=== PATIENT | male | born 1970 | race Hispanic/Latino ===

== ENCOUNTER 2021-01-21 09:43 | Inpatient (IN) | payer SELFPAY ==
[~2021-01-21] VITALS: Ht 175.3 cm; Wt 77.1 kg
[2021-01-21] MEDS ORDERED: SODIUM CHLORIDE 0.9% 1000ML 1,000 ML IV STA (10:11)
[2021-01-21] MEDS ORDERED: DEXAMETHASONE SOD PHOS 10 MG/1 ML VIAL IV ONE (10:15)
[2021-01-21 10:40] LABS: BASOPHILS % 0.2 % (0.0-1.0); EOSINOPHILS % 0.2 % (0.0-6.0); HEMATOCRIT 44.6 % (38.2-49.6); HEMOGLOBIN 14.4 g/dL (14.0-18.0); LYMPHOCYTES # (AUTO) 0.6 (1.0-3.2); MEAN CORPUSCULAR HEMOGLOBIN 29.6 pg (28-32); MEAN CORPUSCULAR HGB CONC 32.3 g/dL (31-35); MEAN CORPUSCULAR VOLUME 91.6 fL (81-99); MONOCYTES # (AUTO) 0.4 (0.2-0.8); MONOCYTES % 5.4 % (4.4-11.3); NEUTROPHILS # (AUTO) 5.6 (2.1-6.9); NEUTROPHILS % 84.6 % (38.7-80.0); PLATELET COUNT 228 x10e3/uL (140-360); RED BLOOD COUNT 4.87 x10e6/uL (4.3-5.7); RED CELL DISTRIBUTION WIDTH 12.5 % (11.7-14.4)
[2021-01-21 11:46] LABS: CREATINE KINASE MB 1.3 ng/mL (0-5.0)
[2021-01-21 11:52] LABS: ALBUMIN 3.2 g/dL (3.5-5.0); ALBUMIN/GLOBULIN RATIO 0.9 (0.8-2.0); ANION GAP 16.1 mmol/L (8-16); CALCIUM 8.8 mg/dL (8.4-10.2); CREATININE, SERUM 0.74 mg/dL (0.72-1.25); POTASSIUM 4.1 mmol/L (3.5-5.1)
[2021-01-21] MEDS ORDERED: ZOLPIDEM TARTRATE 5 MG TAB PO PRN (18:00)
[2021-01-21] MEDS: CEFTRIAXONE 1 GM in SODIUM CHLORIDE 0.9% 50ML 50 ML IV SCH (18:43)
[2021-01-21] MEDS ORDERED: REMDESIVIR 200MG 200 MG in SODIUM CHLORIDE 0.9% 100 ML 100 ML IV ONE (18:45)
[2021-01-21] MEDS: ENOXAPARIN SOD INJ 40 MG/0.4 ML SYR SC SCH (21:19)
[2021-01-22] VITALS (9 sets, daily range): BP systolic 110–154; BP diastolic 76–85
[2021-01-22 06:33] LABS: HEMATOCRIT 39.4 % (38.2-49.6); HEMOGLOBIN 12.6 g/dL (14.0-18.0); LYMPHOCYTES # (AUTO) 0.5 (1.0-3.2); LYMPHOCYTES % 8.7 % (18.0-39.1); MEAN CORPUSCULAR VOLUME 90.8 fL (81-99); MONOCYTES # (AUTO) 0.4 (0.2-0.8); MONOCYTES % 6.6 % (4.4-11.3); NEUTROPHILS # (AUTO) 5.2 (2.1-6.9); NEUTROPHILS % 83.6 % (38.7-80.0); PLATELET COUNT 252 x10e3/uL (140-360); RED BLOOD COUNT 4.34 x10e6/uL (4.3-5.7); RED CELL DISTRIBUTION WIDTH 12.2 % (11.7-14.4)
[2021-01-22 07:03] LABS: ALBUMIN 2.8 g/dL (3.5-5.0); ALBUMIN/GLOBULIN RATIO 0.8 (0.8-2.0); ANION GAP 16.1 mmol/L (8-16); CALCIUM 8.3 mg/dL (8.4-10.2); CREATININE, SERUM 0.63 mg/dL (0.72-1.25); POTASSIUM 4.1 mmol/L (3.5-5.1)
[2021-01-22] MEDS ORDERED: ONDANSETRON HCL INJ 2MG/ML 2ML 2 MG/ML VIAL IV PRN (07:15)
[2021-01-22] MEDS ORDERED: ZOLPIDEM TARTRATE 5 MG TAB PO PRN (07:15)
[2021-01-22] MEDS ORDERED: DOCUSATE SODIUM 100 MG CAP PO PRN (07:15)
[2021-01-22 07:33] LABS: CREATINE KINASE MB 0.7 ng/mL (0-5.0)
[2021-01-22] MEDS: ASCORBIC ACID 500 MG TAB PO SCH ×2 (09:53→17:17)
[2021-01-22] MEDS: ZINC SULFATE 220 MG CAP PO SCH (09:53)
[2021-01-22] MEDS: ENOXAPARIN SOD INJ 40 MG/0.4 ML SYR SC SCH ×2 (09:53→21:41)
[2021-01-22] MEDS ORDERED: DEXAMETHASONE SOD PHOS 10 MG/1 ML VIAL IV ONE (10:30)
[2021-01-22] MEDS ORDERED: SODIUM CHLORIDE 0.9% 250ML 250 ML ONE (11:55)
[2021-01-22] MEDS ORDERED: REMDESIVIR 200MG 200 MG in SODIUM CHLORIDE 0.9% 100 ML 100 ML IV ONE (14:00)
[2021-01-22 16:25] LABS: CREATINE KINASE MB 0.7 ng/mL (0-5.0)
[2021-01-22] MEDS: CEFTRIAXONE 1 GM in SODIUM CHLORIDE 0.9% 50ML 50 ML IV SCH (17:17)
[2021-01-23] VITALS (11 sets, daily range): BP systolic 111–124; BP diastolic 75–83
[2021-01-23] MEDS: ASCORBIC ACID 500 MG TAB PO SCH ×2 (09:22→17:13)
[2021-01-23] MEDS: ENOXAPARIN SOD INJ 40 MG/0.4 ML SYR SC SCH ×2 (09:22→21:00)
[2021-01-23] MEDS: ZINC SULFATE 220 MG CAP PO SCH (09:23)
[2021-01-23] MEDS: LORATADINE 10 MG TAB PO SCH (09:23)
[2021-01-23] MEDS: DEXAMETHASONE SOD PHOS 10 MG/1 ML VIAL IV SCH (10:18)
[2021-01-23] MEDS: REMDESIVIR 100MG 100 MG in SODIUM CHLORIDE 0.9% 100 ML 100 ML IV SCH (14:30)
[2021-01-23] MEDS: CEFTRIAXONE 1 GM in SODIUM CHLORIDE 0.9% 50ML 50 ML IV SCH (17:13)
[2021-01-24] VITALS (7 sets, daily range): BP systolic 110–125; BP diastolic 75–86
[2021-01-24] MEDS: ENOXAPARIN SOD INJ 40 MG/0.4 ML SYR SC SCH ×2 (09:00→20:59)
[2021-01-24] MEDS: LORATADINE 10 MG TAB PO SCH (09:00)
[2021-01-24] MEDS: DEXAMETHASONE SOD PHOS 10 MG/1 ML VIAL IV SCH (09:00)
[2021-01-24] MEDS: ASCORBIC ACID 500 MG TAB PO SCH ×2 (09:00→17:38)
[2021-01-24] MEDS: ZINC SULFATE 220 MG CAP PO SCH (09:00)
[2021-01-24] MEDS ORDERED: SODIUM CHLORIDE 0.9% 250ML 250 ML ONE (09:08)
[2021-01-24] MEDS: BARICITINIB 2 MG TABLET PO SCH (13:13)
[2021-01-24] MEDS: REMDESIVIR 100MG 100 MG in SODIUM CHLORIDE 0.9% 100 ML 100 ML IV SCH (13:56)
[2021-01-24 14:30] LABS: BASOPHILS % 0.1 % (0.0-1.0); HEMOGLOBIN 13.6 g/dL (14.0-18.0); LYMPHOCYTES # (AUTO) 0.5 (1.0-3.2); LYMPHOCYTES % 5.4 % (18.0-39.1); MEAN CORPUSCULAR HEMOGLOBIN 29.4 pg (28-32); MEAN CORPUSCULAR HGB CONC 33.2 g/dL (31-35); MEAN CORPUSCULAR VOLUME 88.7 fL (81-99); MONOCYTES # (AUTO) 0.4 (0.2-0.8); MONOCYTES % 3.7 % (4.4-11.3); NEUTROPHILS # (AUTO) 8.5 (2.1-6.9); NEUTROPHILS % 89.4 % (38.7-80.0); PLATELET COUNT 399 x10e3/uL (140-360); RED BLOOD COUNT 4.62 x10e6/uL (4.3-5.7); RED CELL DISTRIBUTION WIDTH 11.9 % (11.7-14.4)
[2021-01-24 14:46] LABS: ANION GAP 15.5 mmol/L (8-16); CALCIUM 8.2 mg/dL (8.4-10.2); CREATININE, SERUM 0.83 mg/dL (0.72-1.25); POTASSIUM 4.5 mmol/L (3.5-5.1)
[2021-01-24] MEDS: CEFTRIAXONE 1 GM in SODIUM CHLORIDE 0.9% 50ML 50 ML IV SCH (17:38)
[2021-01-25 01:17] VITALS: BP 108/80
[2021-01-25 06:05] VITALS: BP 111/82
[2021-01-25 07:58] VITALS: BP 104/79
[2021-01-25 08:00] VITALS: BP 104/79
[2021-01-25] MEDS ORDERED: SODIUM CHLORIDE 0.9% 100 ML ONE (08:24)
[2021-01-25] MEDS: REMDESIVIR 100MG 100 MG in SODIUM CHLORIDE 0.9% 100 ML IV SCH (08:57)
[2021-01-25] MEDS: BARICITINIB 2 MG TABLET PO SCH (08:58)
[2021-01-25] MEDS: DEXAMETHASONE SOD PHOS 10 MG/1 ML VIAL IV SCH (08:58)
[2021-01-25] MEDS: ZINC SULFATE 220 MG CAP PO SCH (08:58)
[2021-01-25] MEDS: ENOXAPARIN SOD INJ 40 MG/0.4 ML SYR SC SCH ×2 (08:58→21:38)
[2021-01-25] MEDS: LORATADINE 10 MG TAB PO SCH (08:58)
[2021-01-25] MEDS: ASCORBIC ACID 500 MG TAB PO SCH ×3 (08:58→21:37)
[2021-01-25] MEDS: CEFTRIAXONE 1 GM in SODIUM CHLORIDE 0.9% 50ML 50 ML IV SCH (18:00)
[2021-01-25 20:00] VITALS: BP 107/79
[2021-01-25 23:46] VITALS: BP 107/79
[2021-01-26] VITALS (8 sets, daily range): BP systolic 97–112; BP diastolic 67–81
[2021-01-26] MEDS: REMDESIVIR 100MG 100 MG in SODIUM CHLORIDE 0.9% 100 ML IV SCH (07:37)
[2021-01-26 08:09] LABS: BASOPHILS % 0.3 % (0.0-1.0); EOSINOPHILS % 0.2 % (0.0-6.0); HEMATOCRIT 43.5 % (38.2-49.6); HEMOGLOBIN 14.6 g/dL (14.0-18.0); LYMPHOCYTES % 8.8 % (18.0-39.1); MEAN CORPUSCULAR HEMOGLOBIN 29.6 pg (28-32); MEAN CORPUSCULAR HGB CONC 33.6 g/dL (31-35); MEAN CORPUSCULAR VOLUME 88.1 fL (81-99); MONOCYTES # (AUTO) 0.8 (0.2-0.8); MONOCYTES % 7.1 % (4.4-11.3); NEUTROPHILS # (AUTO) 8.9 (2.1-6.9); NEUTROPHILS % 79.4 % (38.7-80.0); PLATELET COUNT 473 x10e3/uL (140-360); RED BLOOD COUNT 4.94 x10e6/uL (4.3-5.7); RED CELL DISTRIBUTION WIDTH 12.1 % (11.7-14.4)
[2021-01-26 08:31] LABS: ANION GAP 13.2 mmol/L (8-16); CALCIUM 8.3 mg/dL (8.4-10.2); CREATININE, SERUM 0.66 mg/dL (0.72-1.25); POTASSIUM 4.2 mmol/L (3.5-5.1)
[2021-01-26] MEDS: ASCORBIC ACID 500 MG TAB PO SCH ×2 (09:57→18:27)
[2021-01-26] MEDS: ZINC SULFATE 220 MG CAP PO SCH (09:57)
[2021-01-26] MEDS: BARICITINIB 2 MG TABLET PO SCH (09:57)
[2021-01-26] MEDS: DEXAMETHASONE SOD PHOS 10 MG/1 ML VIAL IV SCH (09:57)
[2021-01-26] MEDS: LORATADINE 10 MG TAB PO SCH (09:57)
[2021-01-26] MEDS: ENOXAPARIN SOD INJ 40 MG/0.4 ML SYR SC SCH ×2 (09:57→21:18)
[2021-01-27] VITALS (8 sets, daily range): BP systolic 93–107; BP diastolic 64–74
[2021-01-27] MEDS: BARICITINIB 2 MG TABLET PO SCH (08:49)
[2021-01-27] MEDS: ASCORBIC ACID 500 MG TAB PO SCH ×2 (08:49→16:56)
[2021-01-27] MEDS: LORATADINE 10 MG TAB PO SCH (08:49)
[2021-01-27] MEDS: ZINC SULFATE 220 MG CAP PO SCH (08:49)
[2021-01-27] MEDS: DEXAMETHASONE SOD PHOS 10 MG/1 ML VIAL IV SCH (08:49)
[2021-01-27] MEDS: ENOXAPARIN SOD INJ 40 MG/0.4 ML SYR SC SCH ×2 (08:49→20:11)
[2021-01-27 16:46] LABS: BASOPHILS % 0.1 % (0.0-1.0); HEMATOCRIT 42.7 % (38.2-49.6); HEMOGLOBIN 14.6 g/dL (14.0-18.0); LYMPHOCYTES # (AUTO) 0.4 (1.0-3.2); LYMPHOCYTES % 4.6 % (18.0-39.1); MEAN CORPUSCULAR HEMOGLOBIN 29.9 pg (28-32); MEAN CORPUSCULAR HGB CONC 34.2 g/dL (31-35); MEAN CORPUSCULAR VOLUME 87.5 fL (81-99); MONOCYTES # (AUTO) 0.2 (0.2-0.8); MONOCYTES % 2.2 % (4.4-11.3); NEUTROPHILS # (AUTO) 7.6 (2.1-6.9); NEUTROPHILS % 89.5 % (38.7-80.0); PLATELET COUNT 462 x10e3/uL (140-360); RED BLOOD COUNT 4.88 x10e6/uL (4.3-5.7)
[2021-01-27 17:04] LABS: ANION GAP 14.4 mmol/L (8-16); CALCIUM 8.1 mg/dL (8.4-10.2); CREATININE, SERUM 0.75 mg/dL (0.72-1.25); POTASSIUM 4.4 mmol/L (3.5-5.1)
[2021-01-27] MEDS: ACETAMINOPHEN 325 MG TAB PO PRN (19:00)
[2021-01-28] VITALS (9 sets, daily range): BP systolic 91–151; BP diastolic 54–76
[2021-01-28 07:10] LABS: BASOPHILS % 0.2 % (0.0-1.0); EOSINOPHILS % 0.2 % (0.0-6.0); HEMATOCRIT 43.6 % (38.2-49.6); HEMOGLOBIN 14.5 g/dL (14.0-18.0); LYMPHOCYTES # (AUTO) 0.7 (1.0-3.2); LYMPHOCYTES % 7.6 % (18.0-39.1); MEAN CORPUSCULAR HEMOGLOBIN 29.6 pg (28-32); MEAN CORPUSCULAR HGB CONC 33.3 g/dL (31-35); MONOCYTES # (AUTO) 0.7 (0.2-0.8); MONOCYTES % 6.7 % (4.4-11.3); NEUTROPHILS # (AUTO) 7.9 (2.1-6.9); NEUTROPHILS % 81.7 % (38.7-80.0); PLATELET COUNT 494 x10e3/uL (140-360); RED CELL DISTRIBUTION WIDTH 12.3 % (11.7-14.4)
[2021-01-28 07:27] LABS: ANION GAP 13.2 mmol/L (8-16); CALCIUM 8.4 mg/dL (8.4-10.2); CREATININE, SERUM 0.71 mg/dL (0.72-1.25); POTASSIUM 4.2 mmol/L (3.5-5.1)
[2021-01-28] MEDS: DEXAMETHASONE SOD PHOS 10 MG/1 ML VIAL IV SCH (09:47)
[2021-01-28] MEDS: ZINC SULFATE 220 MG CAP PO SCH (09:47)
[2021-01-28] MEDS: BARICITINIB 2 MG TABLET PO SCH (09:47)
[2021-01-28] MEDS: ASCORBIC ACID 500 MG TAB PO SCH ×2 (09:47→17:49)
[2021-01-28] MEDS: ENOXAPARIN SOD INJ 40 MG/0.4 ML SYR SC SCH (09:47)
[2021-01-28] MEDS: LORATADINE 10 MG TAB PO SCH (09:47)
[2021-01-28] MEDS: ACETAMINOPHEN 325 MG TAB PO PRN (14:11)
[2021-01-29 00:40] VITALS: BP 100/76
[2021-01-29 04:15] VITALS: BP 109/74
[2021-01-29 05:53] LABS: BASOPHILS % 0.1 % (0.0-1.0); EOSINOPHILS % 0.1 % (0.0-6.0); HEMOGLOBIN 13.9 g/dL (14.0-18.0); LYMPHOCYTES # (AUTO) 0.8 (1.0-3.2); LYMPHOCYTES % 8.7 % (18.0-39.1); MEAN CORPUSCULAR HEMOGLOBIN 29.4 pg (28-32); MEAN CORPUSCULAR HGB CONC 33.9 g/dL (31-35); MEAN CORPUSCULAR VOLUME 86.9 fL (81-99); MONOCYTES # (AUTO) 0.6 (0.2-0.8); MONOCYTES % 6.3 % (4.4-11.3); NEUTROPHILS # (AUTO) 7.2 (2.1-6.9); NEUTROPHILS % 81.6 % (38.7-80.0); PLATELET COUNT 454 x10e3/uL (140-360); RED BLOOD COUNT 4.72 x10e6/uL (4.3-5.7); RED CELL DISTRIBUTION WIDTH 12.1 % (11.7-14.4)
[2021-01-29 06:13] LABS: ANION GAP 12.1 mmol/L (8-16); CALCIUM 8.2 mg/dL (8.4-10.2); CREATININE, SERUM 0.62 mg/dL (0.72-1.25); POTASSIUM 4.1 mmol/L (3.5-5.1)
[2021-01-29] MEDS: DEXAMETHASONE SOD PHOS 10 MG/1 ML VIAL IV SCH (08:15)
[2021-01-29] MEDS: LORATADINE 10 MG TAB PO SCH (08:15)
[2021-01-29] MEDS: ZINC SULFATE 220 MG CAP PO SCH (08:16)
[2021-01-29] MEDS: ASCORBIC ACID 500 MG TAB PO SCH (08:16)
[2021-01-29] MEDS: BARICITINIB 2 MG TABLET PO SCH (08:16)
[2021-01-29 09:24] VITALS: BP 109/74
[2021-01-29 09:33] VITALS: BP 109/74
[2021-01-29] MEDS ORDERED: ASCORBIC ACID500 MG PO (11:05)
[2021-01-29] MEDS ORDERED: PREDNISONE20 MG PO (11:05)
[2021-01-29] MEDS ORDERED: ZINC SULFATE50 MG PO (11:05)
[2021-01-29] MEDS ORDERED: ZOFRAN4 MG PO (11:05)
[2021-01-29] MEDS ORDERED: LORATADINE10 MG PO (11:05)
[2021-01-29] MEDS ORDERED: TESSALON PERLE100 MG PO (11:05)
[2021-01-29 12:56] VITALS: BP 111/74
[2021-01-29] MEDS ORDERED: ONDANSETRON HCL 4 MG ORAL DISINTEGRATING TAB PO PRN (14:00)
== END 2021-01-29 15:05 | disposition home or self-care (01) | DRG 177 ==
LOC: ER 10:20 → ERHOLD 13:23 → IMCU 01-22 00:03
PROVIDERS: ADMIT Internal Medicine; ATTEND Internal Medicine
PROC: 02HV33Z Insertion of Infusion Device into Superior Vena Cava, Percutaneous Approach (ICD-10-PCS; principal; 2021-01-21)
DX: U07.1 COVID-19 (principal); J12.82 Pneumonia due to coronavirus disease 2019; J96.01 Acute respiratory failure with hypoxia; G93.41 Metabolic encephalopathy; G47.00 Insomnia, unspecified; J30.2 Other seasonal allergic rhinitis
CPT/HCPCS: 36415; 36569; 71045; 80048; 80053; 82550; 82553; 82948; 83880; 84484; 85025; 86140; 93005; 99284; J0456; J0696; J1100; J1650; J7030; J7050; U0002